=== PATIENT | female | born 1975 | race Caucasian/White ===

== ENCOUNTER 2017-06-21 19:41 | Emergency (ER) | payer OTHER ==
[2017-06-21] MEDS: ALBUTEROL SO4 2.5/IPRATROPIUM 0.5 INH SOL 3 ML VIAL.NEB. NEB SCH ×5 (19:40→21:26)
[2017-06-21] MEDS ORDERED: ALBUTEROL SO4 2.5/IPRATROPIUM 0.5 INH SOL 3 ML VIAL.NEB. NEB PRN (19:46)
[2017-06-21] MEDS ORDERED: predniSONE 20 MG TABLET (UD) PO ONE (19:47)
--- NOTE | 2017-06-21 19:49 | PDOC ---
History of Present Illness - General Chief Complaint: Asthma Stated Complaint: ASTHMA Time Seen by Provider: 06/21/17 19:46 History Source: Patient Exam Limitations: No Limitations - History of Present Illness Initial Comments: 06/21/17 19:45 This is a 42-year-old female who comes in complaining of acute exacerbation of her asthma. Patient said she has asthma but it's intermittent and that she does not have any of her asthma medicine including her rescue inhaler. Patient said it's been a number years since she had a asthma attack. Patient said she was started on amoxicillin for a dental procedure and isn't sure whether or not that could've triggered the asthma attack. Patient otherwise denies any chest pain, nausea or abdominal pain. Patient has a history of anxiety and was noted to be very anxious and hyperventilating on arrival in the emergency room. PAST MEDICAL HISTORY: no significant history PAST SURGICAL HISTORY: no significant history FAMILY HISTORY: no pertinant history SOCIAL HISTORY: Pt lives with family and is employed. MEDICATIONS: reviewed ALLERGIES: As per nursing notes Review of Systems General: No fevers or chills, no weakness, no weight loss HEENT: No change in vision. No sore throat,. No ear pain CardioVascular: No chest pain or shortness of breath Respiratory:No cough, or wheezing. Gastrointestinal: no nausea, vomitting, diarrhea or constipation, No rectal bleeding Genitourinary: No dysuria, hematuria, or frequency Musculoskeletal: No joint or muscle pain or swelling Neurologic: No headache, vertigo, dizziness or loss of consciousness Psychiatric: nor depression Skin: No rashes or easy bruising Endocrine: no increased thirst or abnormal weight change Allergic: no skin or latex allergy All other systems reviewed and normal Exam: General: Well-nourished well-developed individual, moderate distress, hyperventilating HEENT: Throat: Normal, tonsils normal, no erythema or exudate Neck: Supple, no meningeal signs, no lymphadenopathy Eyes::Pupils equal reactive and round, extraocular motion intact Chest: Nontender to palpation Cardiac: S1-S2 normal, regular rate and rhythm, no murmurs rubs or gallops, tachycardia Respiratory: There is decreased breath sounds bilaterally with expiratory phase greater than inspiratory phase with expiratory wheezing in all lung bergeron. Abdomen: Soft, nondistended, normal bowel sounds, nontender to palpation diffusely Extremities: Warm, dry, no cyanosis, clubbing, or edema Skin: No rashes Neuro: Alert and oriented x3, nonfocal exam, grossly intact, normal gait Psych: Normal mood and affect 20:40 Reevaluation. Patient much better. Respiratory rate is now normal. Patient still has some mild x-ray wheezing otherwise lungs are clear. Past History - Past Medical History Allergies/Adverse Reactions: Allergies Allergy/AdvReac Type Severity Reaction Status Date / Time No Known Allergies Allergy Verified 02/13/15 20:06 Home Medications: Ambulatory Orders Sertraline HCl [Zoloft -] 100 mg PO DAILY 10/03/14 Alprazolam [Xanax] 0.5 mg PO QID PRN 02/13/15 Oxycodone HCl/Acetaminophen [Percocet 5/325 -] 1 - 2 tab PO Q4H #20 tablet 02/14 Albuterol Sulfate Inhaler - [Ventolin Hfa Inhaler -] 1 - 2 inh PO Q4H #1 inhaler 06/21/17 Clindamycin [Cleocin -] 300 mg PO TID #15 capsule 06/21/17 Metoprolol Succinate [Toprol Xl -] 50 mg PO DAILY 06/21/17 Prednisone [Deltasone -] 60 mg PO DAILY #12 tablet 06/21/17 HTN: Yes Kidney Stones: Yes Psychiatric Problems: Yes - Immunization History Immunization Up to Date: Yes - Suicide/Smoking/Psychosocial Hx Smoking Status: Yes Smoking History: Current every day smoker Years of Tobacco Use: 15 Number of Cigarettes Smoked Daily: 5 'Breaking Loose' booklet given: 09/19/13 Hx Alcohol Use: No Drug/Substance Use Hx: No Substance Use Type: None Hx Substance Use Treatment: No *DC/Admit/Observation/Transfer Diagnosis at time of Disposition: Asthma with acute exacerbation Qualifiers: Asthma severity: moderate Asthma persistence: unspecified Qualified Code(s): J45.901 - Unspecified asthma with (acute) exacerbation; J45.901 - Unspecified asthma with (acute) exacerbation; J45.901 - Unspecified asthma with (acute) exacerbation - Discharge Dispostion Disposition: HOME Condition at time of disposition: Stable Admit: No - Patient Instructions Printed Discharge Instructions: Asthma -- Adult Additional Instructions: Stop taking the ampicillin in case it contributed to your asthma attack. Instead get the prescription filled for clindamycin take it as prescribed. I sent a prescription to your pharmacy for the Ventolin metered-dose inhaler. You can take 2 puffs as often as every 4 hours if needed for wheezing. I also sent a prescription to your pharmacy for prednisone take 60 mg a day for the next 4 days. Return to the emergency department immediately with ANY new, persistent or worsening symptoms. Continue any medications as previously prescribed by your physician. You should follow up with your primary doctor as soon as possible regarding today's emergency department visit. . Please make sure your doctor reviews the results of your emergency evaluation. Thank you for coming to the Emergency Department today for your care. It was a pleasure to see you today. Please note that your evaluation is INCOMPLETE until you follow-up with your doctor.
[2017-06-21 19:56] VITALS: BMI 38.2
[2017-06-21] MEDS ORDERED: ALPRAZolam 0.25 MG TABLET PO STA (20:05)
[2017-06-21 21:25] VITALS: BP 156/98; PULSE 96
== END 2017-06-21 21:29 | disposition home or self-care (01) ==
LOC: FER 19:41
DX: J45.901 Unspecified asthma with (acute) exacerbation (principal); I10 Essential (primary) hypertension; F17.210 Nicotine dependence, cigarettes, uncomplicated; F99 Mental disorder, not otherwise specified; Z87.442 Personal history of urinary calculi
CPT/HCPCS: 99281-25

== ENCOUNTER 2021-03-09 18:40 | Emergency (ER) | payer OTHER ==
[2021-03-09 19:04] VITALS: BP 160/90; PULSE 86; TEMP 98.9; BMI 44.0
[2021-03-09 20:05] LABS: BASO % 3.9 % (0-2.0); EOS % 1.7 % (0-4.5); HEMATOCRIT 35.2 % (32.4-45.2); HEMOGLOBIN 12.5 GM/dl (10.7-15.3); LYMPH % 21.7 % (8-40); MCH 29.2 pg (25.7-33.7); MCHC 35.5 g/dl (32.0-36.0); MEAN CELL VOLUME 82.2 fl (80-96); MEAN PLT VOLUME 9.7 fl (7.5-11.1); MONO % 5.5 % (3.8-10.2); NEUT % 67.2 % (42.8-82.8); PLATELET COUNT 181 10^3/uL (134-434); RBC 4.28 M/mm3 (3.60-5.2); RDW 13.5 % (11.6-15.6); WHITE BLOOD COUNT 6.8 K/mm3 (4.0-10.8)
[2021-03-09 20:20] LABS: ALBUMIN 3.5 g/dl (3.4-5.0); BILIRUBIN,TOTAL 0.5 mg/dl (0.2-1); CALCIUM 8.2 mg/dl (8.5-10); CREATININE 0.5 mg/dl (0.55-1.3)
[2021-03-09] MEDS ORDERED: ACETAMINOPHEN 1000 MG/100 ML VIAL (NON FORMULARY) IVPB ONE (20:23)
[2021-03-09] MEDS ORDERED: ACETAMINOPHEN INJECTION 100 ML IVPB ONE (20:26)
[2021-03-09] MEDS ORDERED: CEPHALEXIN MONOHYDRATE 500 MG CAPSULE (UD) PO ONE (21:38)
[2021-03-09] MEDS ORDERED: KETOROLAC TROMETHAMINE 30 MG/1 ML VIAL ONE (21:39)
[2021-03-09] MEDS ORDERED: KETOROLAC TROMETHAMINE 30 MG/1 ML VIAL IVPUSH ONE (21:39)
[2021-03-09] MEDS ORDERED: CEPHALEXIN MONOHYDRATE 500 MG CAPSULE (UD) ONE (21:40)
== END 2021-03-09 21:57 | disposition home or self-care (01) ==
LOC: FER 18:40
PROC: 3E0333Z Introduction of Anti-inflammatory into Peripheral Vein, Percutaneous Approach (ICD-10-PCS; principal; 2021-03-09)
PROC: 3E0333Z Introduction of Anti-inflammatory into Peripheral Vein, Percutaneous Approach (ICD-10-PCS; 2021-03-09)
DX: R60.0 Localized edema (principal); L03.115 Cellulitis of right lower limb
CPT/HCPCS: 36415; 80053; 85025; 85730; 93971-TC; 99284-25; J0131

== ENCOUNTER 2021-04-08 23:49 | Inpatient (IN) | payer OTHER ==
[2021-04-09] MEDS ORDERED: oxyCODONE HCL 5 MG TABLET PO ONE (01:09)
[2021-04-09] MEDS ORDERED: oxyCODONE HCL 5 MG TABLET ONE (01:22)
[2021-04-09] MEDS ORDERED: KETOROLAC TROMETHAMINE 30 MG/1 ML VIAL IM ONE (03:09)
[2021-04-09] MEDS ORDERED: KETOROLAC TROMETHAMINE 30 MG/1 ML VIAL ONE (03:27)
[2021-04-09 06:02] LABS: BASO % 0.6 % (0-2.0); EOS % 2.2 % (0-4.5); HEMATOCRIT 34.1 % (32.4-45.2); HEMOGLOBIN 11.9 GM/dL (10.7-15.3); LYMPH % 21.8 % (8-40); MCH 28.2 pg (25.7-33.7); MCHC 34.9 g/dl (32.0-36.0); MEAN CELL VOLUME 80.8 fl (80-96); MEAN PLT VOLUME 9.6 fl (7.5-11.1); MONO % 6.9 % (3.8-10.2); NEUT % 68.5 % (42.8-82.8); PLATELET COUNT 188 10^3/uL (134-434); RBC 4.22 M/mm3 (3.60-5.2); RDW 14.5 % (11.6-15.6); WHITE BLOOD COUNT 6.4 K/mm3 (4.0-10.0)
[2021-04-09 06:19] LABS: CALCIUM 8.1 mg/dL (8.5-10.1)
[2021-04-09 06:20] LABS: BLOOD UREA NITROGEN 8.9 mg/dL (7-18)
[2021-04-09 06:23] LABS: CREATININE 0.7 mg/dL (0.55-1.3)
[2021-04-09] MEDS ORDERED: POTASSIUM CHLORIDE TABS 20 MEQ TABLET.ER (FP) PO ONE ×2 (06:33→06:56)
[2021-04-09] MEDS ORDERED: ACETAMINOPHEN 325 MG TABLET (FP) PO PRN (08:08)
[2021-04-09] MEDS ORDERED: ACETAMINOPHEN 325 MG TABLET (FP) ONE (08:19)
[2021-04-09] MEDS ORDERED: ENOXAPARIN NA (PORCINE) 40 MG/0.4 ML DISP.SYRIN SQ ONE (08:19)
[2021-04-09] MEDS ORDERED: SUMAtriptan SUCCINATE 50 MG TABLET PO PRN (08:32)
[2021-04-09] MEDS ORDERED: ALBUTEROL SO4 HFA INHALER IH PRN (08:32)
[2021-04-09] MEDS: ENOXAPARIN NA (PORCINE) 40 MG/0.4 ML DISP.SYRIN SQ SCH (09:13)
[2021-04-09] MEDS ORDERED: amLODIPine BESYLATE 5 MG TABLET (FP) ONE (09:49)
[2021-04-09] MEDS ORDERED: LISINOPRIL 20 MG TABLET ONE (09:49)
[2021-04-09] MEDS ORDERED: ARIPiprazole 5 MG TABLET ONE (09:50)
[2021-04-09] MEDS: ARIPiprazole 5 MG TABLET PO SCH (09:53)
[2021-04-09] MEDS: amLODIPine BESYLATE 5 MG TABLET (FP) PO SCH (09:53)
[2021-04-09] MEDS: LISINOPRIL 20 MG TABLET PO SCH (09:53)
[2021-04-09] MEDS ORDERED: SUMAtriptan SUCCINATE 50 MG TABLET ONE (13:04)
[2021-04-09 13:33] LABS: EPI CELLS 18 /uL (0-25.1); HYALINE CASTS 0 /uL (0-3.1); PH,URINE 6.5 (5.0-8.0); URINE APPEARANCE CLEAR; URINE BACTERIA 258 /uL (0-1359); URINE BILIRUBIN NEGATIVE (NEGATIVE); URINE COLOR YELLOW; URINE GLUCOSE (UA) NEGATIVE (NEGATIVE); URINE KETONE NEGATIVE (NEGATIVE); URINE LEUK ESTERASE NEGATIVE (NEGATIVE); URINE NITRITE NEGATIVE (NEGATIVE); URINE PROTEIN 1+ (NEGATIVE); URINE RBC 23 /uL (0-23.9); URINE WBC 12 /uL (0-25.8)
[2021-04-09 14:04] VITALS: BMI 55.2
[2021-04-09] MEDS ORDERED: PNEUMOC 13-VAL CONJ-DIP CRM/PF 0.5 ML DISP.SYRIN IM ONE (14:09)
[2021-04-09] MEDS ORDERED: PNEUMOCOCCAL 23 VACCINE 0.5 ML VIAL IM ONE (17:00)
[2021-04-09] MEDS: SERTRALINE HCL 50 MG TABLET (FP) PO SCH (22:00)
[2021-04-09] MEDS: ACETAMINOPHEN 325 MG TABLET (FP) PO PRN (22:00)
[2021-04-09] MEDS: ZOLPIDEM TARTRATE 5 MG TABLET PO PRN (22:01)
[2021-04-09] MEDS: oxyCODONE HCL 5 MG TABLET PO PRN (22:01)
[2021-04-10] MEDS: ALPRAZolam 1 MG TABLET PO PRN ×2 (01:15→09:21)
[2021-04-10] MEDS: IBUPROFEN 400 MG TABLET (FP) PO PRN ×2 (04:22→09:14)
[2021-04-10] MEDS: oxyCODONE HCL 5 MG TABLET PO PRN ×3 (06:08→18:58)
[2021-04-10] MEDS: ACETAMINOPHEN 325 MG TABLET (FP) PO PRN (06:08)
[2021-04-10 09:07] LABS: BASO % 0.6 % (0-2.0); EOS % 2.6 % (0-4.5); HEMATOCRIT 33.3 % (32.4-45.2); HEMOGLOBIN 11.8 GM/dL (10.7-15.3); LYMPH % 24.2 % (8-40); MCH 28.3 pg (25.7-33.7); MCHC 35.4 g/dl (32.0-36.0); MEAN CELL VOLUME 80.1 fl (80-96); MEAN PLT VOLUME 9.3 fl (7.5-11.1); MONO % 6.6 % (3.8-10.2); PLATELET COUNT 190 10^3/uL (134-434); RBC 4.15 M/mm3 (3.60-5.2); RDW 14.3 % (11.6-15.6); WHITE BLOOD COUNT 5.1 K/mm3 (4.0-10.0)
[2021-04-10] MEDS: ARIPiprazole 5 MG TABLET PO SCH (09:13)
[2021-04-10] MEDS: amLODIPine BESYLATE 5 MG TABLET (FP) PO SCH (09:14)
[2021-04-10] MEDS: ENOXAPARIN NA (PORCINE) 40 MG/0.4 ML DISP.SYRIN SQ SCH (09:14)
[2021-04-10] MEDS: LISINOPRIL 20 MG TABLET PO SCH (09:14)
[2021-04-10 09:27] LABS: BLOOD UREA NITROGEN 11.2 mg/dL (7-18)
[2021-04-10 09:28] LABS: ALBUMIN 2.9 g/dl (3.4-5.0); CALCIUM 8.1 mg/dL (8.5-10.1); MAGNESIUM 2.1 mg/dL (1.8-2.4)
[2021-04-10 09:31] LABS: CREATININE 0.6 mg/dL (0.55-1.3)
[2021-04-10 09:32] LABS: PHOSPHOROUS 3.7 mg/dL (2.5-4.9)
[2021-04-10 09:33] LABS: BILIRUBIN,TOTAL 0.4 mg/dL (0.2-1); TOT PROT 5.9 g/dl (6.4-8.2)
[2021-04-10] MEDS ORDERED: ACETAMINOPHEN 325 MG TABLET (FP) PO STA (10:01)
[2021-04-10] MEDS ORDERED: oxyCODONE HCL 5 MG TABLET PO PRN (10:03)
[2021-04-10] MEDS ORDERED: POTASSIUM CHLORIDE TABS 20 MEQ TABLET.ER (FP) PO ONE (10:04)
[2021-04-10] MEDS ORDERED: ACETAMINOPHEN 500 MG TABLET (FP) PO STA (10:17)
[2021-04-10] MEDS: CARISOPRODOL 350 MG PO SCH (10:28)
[2021-04-10] MEDS ORDERED: ACETAMINOPHEN 500 MG TABLET (FP) PO SCH (10:30)
[2021-04-10] MEDS: LIDOCAINE 5% TOPICAL PATCH TP SCH (10:30)
[2021-04-10] MEDS: ACETAMINOPHEN 500 MG TABLET (FP) PO SCH ×3 (10:30→22:42)
[2021-04-10] MEDS ORDERED: GABAPENTIN 100 MG CAPSULE PO SCH (14:00)
[2021-04-10] MEDS ORDERED: PT OWN MED DRAWER 7, Y5N ONE ×2 (21:13)
[2021-04-10] MEDS: LIDOCAINE PATCH REMOVAL MC SCH (21:15)
[2021-04-10] MEDS: BACLOFEN 10 MG TABLET (FP) PO SCH (21:15)
[2021-04-10] MEDS: GABAPENTIN 300 MG CAPSULE PO SCH (21:15)
[2021-04-10] MEDS: SERTRALINE HCL 50 MG TABLET (FP) PO SCH (21:15)
[2021-04-10] MEDS: ZOLPIDEM TARTRATE 5 MG TABLET PO PRN (22:42)
[2021-04-10] MEDS: CELECOXIB 200 MG CAPSULE PO SCH (22:43)
[2021-04-11] MEDS: ALPRAZolam 1 MG TABLET PO PRN ×3 (00:17→21:59)
[2021-04-11] MEDS: oxyCODONE HCL 5 MG TABLET PO PRN ×4 (01:28→21:16)
[2021-04-11] MEDS: ACETAMINOPHEN 500 MG TABLET (FP) PO SCH ×4 (03:30→22:10)
[2021-04-11] MEDS: BACLOFEN 10 MG TABLET (FP) PO SCH ×3 (05:53→21:15)
[2021-04-11] MEDS: GABAPENTIN 300 MG CAPSULE PO SCH ×3 (05:53→21:15)
[2021-04-11] MEDS ORDERED: PT OWN MED DRAWER 7, Y5N ONE ×2 (10:04→20:33)
[2021-04-11] MEDS: amLODIPine BESYLATE 5 MG TABLET (FP) PO SCH (10:27)
[2021-04-11] MEDS: LISINOPRIL 20 MG TABLET PO SCH (10:29)
[2021-04-11] MEDS: ARIPiprazole 5 MG TABLET PO SCH (10:29)
[2021-04-11] MEDS: CELECOXIB 200 MG CAPSULE PO SCH ×2 (10:30→21:15)
[2021-04-11] MEDS: ENOXAPARIN NA (PORCINE) 40 MG/0.4 ML DISP.SYRIN SQ SCH (10:32)
[2021-04-11] MEDS: LIDOCAINE 5% TOPICAL PATCH TP SCH (10:50)
[2021-04-11] MEDS ORDERED: POTASSIUM CHLORIDE TABS 20 MEQ TABLET.ER (FP) PO ONE (14:00)
[2021-04-11] MEDS: SERTRALINE HCL 50 MG TABLET (FP) PO SCH (21:15)
[2021-04-11] MEDS: LIDOCAINE PATCH REMOVAL MC SCH (21:15)
[2021-04-11] MEDS: ZOLPIDEM TARTRATE 5 MG TABLET PO PRN (21:59)
[2021-04-12] MEDS: oxyCODONE HCL 5 MG TABLET PO PRN ×2 (03:43→10:09)
[2021-04-12] MEDS: ACETAMINOPHEN 500 MG TABLET (FP) PO SCH ×2 (03:44→12:33)
[2021-04-12] MEDS: BACLOFEN 10 MG TABLET (FP) PO SCH (06:05)
[2021-04-12] MEDS: GABAPENTIN 300 MG CAPSULE PO SCH (06:05)
[2021-04-12] MEDS: ALPRAZolam 1 MG TABLET PO PRN (08:41)
[2021-04-12] MEDS: LISINOPRIL 20 MG TABLET PO SCH (10:08)
[2021-04-12] MEDS: ARIPiprazole 5 MG TABLET PO SCH (10:08)
[2021-04-12] MEDS: amLODIPine BESYLATE 5 MG TABLET (FP) PO SCH (10:09)
[2021-04-12] MEDS: LIDOCAINE 5% TOPICAL PATCH TP SCH (10:11)
[2021-04-12] MEDS: ENOXAPARIN NA (PORCINE) 40 MG/0.4 ML DISP.SYRIN SQ SCH (10:11)
[2021-04-12] MEDS ORDERED: PT OWN MED DRAWER 7, Y5N ONE (10:13)
[2021-04-12] MEDS: CELECOXIB 200 MG CAPSULE PO SCH (10:14)
[2021-04-12 11:22] VITALS: BP 149/89; PULSE 79; TEMP 98
== END 2021-04-12 14:00 | disposition home health service (06) | DRG 384 ==
LOC: JER 23:49 → UNDOADMOB 04-09 04:37 → INTOOBSV 04-09 04:37 → JERBED 04-09 04:37 → J8W 04-09 13:47 → OBSVTOIN 04-10 08:08
PROVIDERS: ADMIT Internal Medicine; ATTEND Nurse Practitioner Acute Care
DX: S80.01XA Contusion of right knee, initial encounter (principal); I10 Essential (primary) hypertension; Z68.43 Body mass index [BMI] 50.0-59.9, adult; E66.01 Morbid (severe) obesity due to excess calories; F41.9 Anxiety disorder, unspecified; F31.9 Bipolar disorder, unspecified; G43.909 Migraine, unspecified, not intractable, without status migrainosus; M54.5 Low back pain; F25.9 Schizoaffective disorder, unspecified; J45.20 Mild intermittent asthma, uncomplicated; E28.2 Polycystic ovarian syndrome; M62.830 Muscle spasm of back; W01.0XXA Fall on same level from slipping, tripping and stumbling without subsequent striking against object, initial encounter; Y93.89 Activity, other specified; Y92.89 Other specified places as the place of occurrence of the external cause; Y99.8 Other external cause status
CPT/HCPCS: 36415; 72100-TC-FY; 72131-TC; 73030-TC-LT-FY; 73562-TC-RT-FY; 73700-TC-RT; 80048; 80053; 81003; 83735; 84100; 85025; 87086; 90732; 93005; 93010; 97116-GP; 97161-GP; 99285-25; C9803; G0009; G0378; J0475; U0003; U0005

== ENCOUNTER 2021-08-13 21:51 | Inpatient (IN) | payer OTHER ==
[2021-08-13] MEDS ORDERED: ALBUTEROL SO4 2.5/IPRATROPIUM 0.5 INH SOL 3 ML VIAL.NEB. NEB ONE ×4 (23:54→23:58)
[2021-08-13] MEDS ORDERED: LACTATED RINGERS SOLUTION 1000 ML INFUS.BAG IV ONE (23:54)
[2021-08-13] MEDS ORDERED: DEXAMETHASONE SOD PHOSPHATE 4 MG/1 ML VIAL IVPUSH ONE (23:54)
[2021-08-13] MEDS ORDERED: oxyCODONE HCL 5 MG TABLET PO ONE (23:55)
[2021-08-13] MEDS ORDERED: DEXAMETHASONE SOD PHOSPHATE 10 MG/1 ML VIAL ONE (23:58)
[2021-08-14] MEDS ORDERED: oxyCODONE HCL 5 MG TABLET ONE
[2021-08-14] MEDS ORDERED: ONDANSETRON *ODT* 4 MG TABLET SL ONE (00:14)
[2021-08-14 00:15] LABS: BASO % 0.6 % (0-2.0); EOS % 1.2 % (0-4.5); HEMATOCRIT 38.5 % (32.4-45.2); HEMOGLOBIN 13.1 GM/dL (10.7-15.3); LYMPH % 33.8 % (8-40); MCH 26.5 pg (25.7-33.7); MCHC 33.9 g/dl (32.0-36.0); MEAN CELL VOLUME 78.3 fl (80-96); MONO % 10.2 % (3.8-10.2); NEUT % 54.2 % (42.8-82.8); PLATELET COUNT 153 10^3/uL (134-434); RBC 4.92 M/mm3 (3.60-5.2); RDW 15.3 % (11.6-15.6); WHITE BLOOD COUNT 4.6 K/mm3 (4.0-10.0)
[2021-08-14 00:16] LABS: VENOUS BASE EXCESS 1.6 mmol/L (-2-2); VENOUS O2 SATURATION 67.2 % (70-80); VENOUS PCO2 56.9 mmHg (38-52); VENOUS PH 7.328 (7.310-7.410)
[2021-08-14] MEDS ORDERED: ONDANSETRON *ODT* 4 MG TABLET ONE (00:17)
[2021-08-14 00:23] LABS: INR 1.06 (0.83-1.09); PROTHROMBIN TIME (PATIENT) 12.4 SEC (9.7-13.0)
[2021-08-14 00:26] LABS: ACTIVATED PTT 28.7 SECONDS (25.2-36.5)
[2021-08-14 00:34] LABS: CHLORIDE 101 mmol/L (98-107); SODIUM 137 mmol/L (136-145)
[2021-08-14 00:36] LABS: CALCIUM 8.8 mg/dL (8.5-10.1)
[2021-08-14 00:37] LABS: ALBUMIN 3.6 g/dl (3.4-5.0); ANION GAP 8 MMOL/L (8-16); CO2 27 mmol/L (21-32); GLUCOSE,RANDOM 96 mg/dL (74-106)
[2021-08-14 00:40] LABS: CREATININE 0.9 mg/dL (0.55-1.3); SGOT/AST 57 U/L (15-37); SGPT/ALT 59 U/L (13-61)
[2021-08-14 00:41] LABS: TOT PROT 7.1 g/dl (6.4-8.2)
[2021-08-14 00:42] LABS: BILIRUBIN,TOTAL 0.6 mg/dL (0.2-1); LDH 309 U/L (84-246)
[2021-08-14 00:43] LABS: ALK PHOS 76 U/L (45-117)
[2021-08-14] MEDS ORDERED: oxyCODONE HCL 5 MG TABLET PO ONE (02:35)
[2021-08-14] MEDS ORDERED: PATIENT'S OWN MEDICATION (NON-FORMULARY) (Carisoprodol [Soma] 350 MG) PO PRN (03:26)
[2021-08-14] MEDS ORDERED: ACETAMINOPHEN 325 MG TABLET (FP) ONE (05:27)
[2021-08-14] MEDS: ACETAMINOPHEN 325 MG TABLET (FP) PO PRN (05:32)
[2021-08-14] MEDS ORDERED: CARISOPRODOL 350 MG PO SCH (06:00)
[2021-08-14 09:58] LABS: BASO % 0.6 % (0-2.0); HEMOGLOBIN 12.7 GM/dL (10.7-15.3); LYMPH % 14.7 % (8-40); MCH 27.1 pg (25.7-33.7); MCHC 34.3 g/dl (32.0-36.0); MONO % 4.2 % (3.8-10.2); NEUT % 80.5 % (42.8-82.8); PLATELET COUNT 150 10^3/uL (134-434); RBC 4.68 M/mm3 (3.60-5.2); RDW 15.3 % (11.6-15.6); WHITE BLOOD COUNT 3.1 K/mm3 (4.0-10.0)
[2021-08-14 10:25] LABS: ALBUMIN 3.4 g/dl (3.4-5.0); BLOOD UREA NITROGEN 13.1 mg/dL (7-18); CALCIUM 8.9 mg/dL (8.5-10.1); MAGNESIUM 2.4 mg/dL (1.8-2.4)
[2021-08-14 10:28] LABS: CREATININE 0.9 mg/dL (0.55-1.3); PHOSPHOROUS 3.7 mg/dL (2.5-4.9)
[2021-08-14 10:30] LABS: BILIRUBIN,TOTAL 0.5 mg/dL (0.2-1)
[2021-08-14] MEDS ORDERED: ARIPiprazole 5 MG TABLET ONE (10:59)
[2021-08-14] MEDS ORDERED: ENOXAPARIN NA (PORCINE) 40 MG/0.4 ML DISP.SYRIN SQ ONE ×2 (10:59→22:27)
[2021-08-14] MEDS ORDERED: DEXAMETHASONE SOD PHOSPHATE 10 MG/1 ML VIAL ONE (10:59)
[2021-08-14] MEDS: DEXAMETHASONE SOD PHOSPHATE 4 MG/1 ML VIAL IVPUSH SCH (11:06)
[2021-08-14] MEDS: ARIPiprazole 5 MG TABLET PO SCH (11:06)
[2021-08-14] MEDS: ENOXAPARIN NA (PORCINE) 40 MG/0.4 ML DISP.SYRIN SQ SCH ×2 (11:07→22:58)
[2021-08-14] MEDS ORDERED: ALBUTEROL SO4 HFA INHALER IH PRN (13:14)
[2021-08-14] MEDS ORDERED: guaiFENesin 200 MG/10 ML 10 ML UNIT-DOSE CUPS PO PRN (13:23)
[2021-08-14] MEDS ORDERED: REMDESIVIR 200 MG in SODIUM CHLORIDE 250 ML IVPB ONE (15:00)
[2021-08-14 15:47] LABS: ARTERIAL BLD GAS O2 SATURATION 90.6 % (95-98); ARTERIAL BLOOD GAS BASE EXCESS -1.4 mmol/L (-2-2); ARTERIAL BLOOD GAS PO2 62.6 mmHg (80-100); ARTERIAL BLOOD GAS pH 7.342 (7.350-7.450)
[2021-08-14 15:48] LABS: ALLENS TEST POSITIVE
[2021-08-14] MEDS ORDERED: BACLOFEN 10 MG TABLET (FP) PO SCH (18:42)
[2021-08-14] MEDS ORDERED: amLODIPine BESYLATE 5 MG TABLET (FP) ONE (18:54)
[2021-08-14] MEDS: amLODIPine BESYLATE 10 MG TABLET (FP) PO SCH (19:03)
[2021-08-14] MEDS: BUDESONIDE/FORMETEROL FUMARATE 160/4.5 mcg INHALER IH SCH ×2 (19:32→22:59)
[2021-08-14] MEDS ORDERED: BUDESONIDE/FORMETEROL FUMARATE 80/4.5 mcg INHALER IH SCH (22:00)
[2021-08-14] MEDS ORDERED: ZOLPIDEM TARTRATE 5 MG TABLET PO PRN (22:00)
[2021-08-14] MEDS ORDERED: SERTRALINE HCL 50 MG TABLET (FP) ONE (22:27)
[2021-08-14] MEDS: LIDOCAINE PATCH REMOVAL MC SCH (22:58)
[2021-08-14] MEDS: CELECOXIB 200 MG CAPSULE PO SCH (22:58)
[2021-08-14] MEDS: SERTRALINE HCL 50 MG TABLET (FP) PO SCH (22:59)
[2021-08-15 03:08] VITALS: BMI 54.3
[2021-08-15] MEDS: BACLOFEN 10 MG TABLET (FP) PO SCH ×3 (05:04→21:59)
[2021-08-15] MEDS: DEXAMETHASONE SOD PHOSPHATE 4 MG/1 ML VIAL IVPUSH SCH (10:03)
[2021-08-15] MEDS: ARIPiprazole 5 MG TABLET PO SCH (10:03)
[2021-08-15] MEDS: CELECOXIB 200 MG CAPSULE PO SCH ×2 (10:03→22:40)
[2021-08-15] MEDS: amLODIPine BESYLATE 10 MG TABLET (FP) PO SCH (10:03)
[2021-08-15] MEDS: ENOXAPARIN NA (PORCINE) 40 MG/0.4 ML DISP.SYRIN SQ SCH ×2 (10:03→21:59)
[2021-08-15] MEDS: ALPRAZolam 1 MG TABLET PO PRN (10:03)
[2021-08-15] MEDS: LISINOPRIL 20 MG TABLET PO SCH (10:03)
[2021-08-15] MEDS: LIDOCAINE 5% TOPICAL PATCH TP SCH (10:04)
[2021-08-15] MEDS: BUDESONIDE/FORMETEROL FUMARATE 160/4.5 mcg INHALER IH SCH ×2 (10:15→22:00)
[2021-08-15 10:34] LABS: BASO % 0.1 % (0-2.0); HEMATOCRIT 33.1 % (32.4-45.2); HEMOGLOBIN 11.5 GM/dL (10.7-15.3); LYMPH % 9.8 % (8-40); MCH 27.4 pg (25.7-33.7); MCHC 34.6 g/dl (32.0-36.0); MEAN PLT VOLUME 9.5 fl (7.5-11.1); MONO % 5.1 % (3.8-10.2); PLATELET COUNT 150 10^3/uL (134-434); RBC 4.19 M/mm3 (3.60-5.2); WHITE BLOOD COUNT 5.7 K/mm3 (4.0-10.0)
[2021-08-15 11:03] LABS: ALBUMIN 3.4 g/dl (3.4-5.0); CALCIUM 8.5 mg/dL (8.5-10.1)
[2021-08-15 11:04] LABS: BLOOD UREA NITROGEN 24.9 mg/dL (7-18)
[2021-08-15 11:05] LABS: BILIRUBIN,TOTAL 0.3 mg/dL (0.2-1); TOT PROT 6.7 g/dl (6.4-8.2)
[2021-08-15 11:07] LABS: CREATININE 0.8 mg/dL (0.55-1.3)
[2021-08-15] MEDS: REMDESIVIR 100 MG in SODIUM CHLORIDE 250 ML IVPB SCH (14:27)
[2021-08-15] MEDS: LIDOCAINE PATCH REMOVAL MC SCH (21:58)
[2021-08-15] MEDS: ACETAMINOPHEN 325 MG TABLET (FP) PO PRN (21:59)
[2021-08-15] MEDS: SERTRALINE HCL 50 MG TABLET (FP) PO SCH (21:59)
[2021-08-15] MEDS ORDERED: PT OWN MED DRAWER 7, Y5N ONE (22:02)
[2021-08-16] MEDS ORDERED: PT OWN MED DRAWER 7, Y5N ONE ×2 (05:05→09:18)
[2021-08-16] MEDS: BACLOFEN 10 MG TABLET (FP) PO SCH ×3 (05:19→22:03)
[2021-08-16] MEDS: REMDESIVIR 100 MG in SODIUM CHLORIDE 250 ML IVPB SCH (09:40)
[2021-08-16] MEDS: ENOXAPARIN NA (PORCINE) 40 MG/0.4 ML DISP.SYRIN SQ SCH ×2 (09:40→22:03)
[2021-08-16] MEDS: LIDOCAINE 5% TOPICAL PATCH TP SCH (09:41)
[2021-08-16] MEDS: CELECOXIB 200 MG CAPSULE PO SCH ×2 (09:42→22:04)
[2021-08-16] MEDS: LISINOPRIL 20 MG TABLET PO SCH (09:42)
[2021-08-16] MEDS: ARIPiprazole 5 MG TABLET PO SCH (09:42)
[2021-08-16] MEDS: amLODIPine BESYLATE 10 MG TABLET (FP) PO SCH (09:43)
[2021-08-16] MEDS: BUDESONIDE/FORMETEROL FUMARATE 160/4.5 mcg INHALER IH SCH ×2 (09:54→22:04)
[2021-08-16] MEDS: DEXAMETHASONE SOD PHOSPHATE 4 MG/1 ML VIAL IVPUSH SCH (09:54)
[2021-08-16] MEDS: ACETAMINOPHEN 325 MG TABLET (FP) PO PRN ×2 (10:11→22:03)
[2021-08-16] MEDS: ALPRAZolam 1 MG TABLET PO PRN ×2 (10:12→22:03)
[2021-08-16] MEDS ORDERED: ACETAMINOPHEN 325 MG TABLET (FP) PO PRN (13:00)
[2021-08-16] MEDS: oxyCODONE HCL 5 MG TABLET PO PRN ×2 (13:04→22:19)
[2021-08-16] MEDS: LIDOCAINE PATCH REMOVAL MC SCH (22:02)
[2021-08-16] MEDS: SERTRALINE HCL 50 MG TABLET (FP) PO SCH (22:03)
[2021-08-16 23:15] VITALS: BP 140/66; PULSE 70; TEMP 97.8
== END 2021-08-16 23:36 | disposition home or self-care (01) | DRG 137 ==
LOC: JER 21:51 → JERBED 08-14 03:48 → J6S 08-15 02:55
PROVIDERS: ADMIT Internal Medicine; ATTEND Internal Medicine
PROC: XW033E5 Introduction of Remdesivir Anti-infective into Peripheral Vein, Percutaneous Approach, New Technology Group 5 (ICD-10-PCS; principal; 2021-08-14)
DX: U07.1 COVID-19 (principal); J12.82 Pneumonia due to coronavirus disease 2019; Z68.43 Body mass index [BMI] 50.0-59.9, adult; E66.01 Morbid (severe) obesity due to excess calories; F41.9 Anxiety disorder, unspecified; F17.210 Nicotine dependence, cigarettes, uncomplicated; F31.9 Bipolar disorder, unspecified; G43.909 Migraine, unspecified, not intractable, without status migrainosus; M54.9 Dorsalgia, unspecified; R11.0 Nausea; R53.83 Other fatigue; R60.9 Edema, unspecified; G89.29 Other chronic pain; I10 Essential (primary) hypertension; I51.7 Cardiomegaly; J45.909 Unspecified asthma, uncomplicated; E28.2 Polycystic ovarian syndrome
CPT/HCPCS: 36415; 36600; 71045-TC-FY; 80053; 82550; 82553; 82728; 82803; 83605; 83615; 83735; 84100; 84484; 85025; 85379; 85610; 85730; 86140; 87804; 87807; 93005; 93010; 93970-TC; 94010; 94761; 99285-25; C9399; C9803; J0475; Q0162; U0003; U0005

== ENCOUNTER 2021-10-30 04:19 | Day surgery (SDC) | payer OTHER ==
[2021-10-29 13:11] VITALS: BMI 45.7
[2021-10-30] MEDS ORDERED: LIDOCAINE HCL/PF 1% SDV 5ML VIAL ONE (07:25)
[2021-10-30] MEDS ORDERED: BUPIVACAINE HCL/PF 0.75% 10 ML VIAL ONE (07:25)
[2021-10-30 14:06] VITALS: BP 191/123; PULSE 100; TEMP 97.3
== END 2021-10-30 13:40 | disposition left against medical advice (07) ==
LOC: JASU-SURG 04:19
PROVIDERS: ATTEND Pain Medicine Pain Medicine
DX: Z53.8 Procedure and treatment not carried out for other reasons (principal)

== ENCOUNTER 2023-08-04 18:25 | Emergency (ER) | payer OTHER ==
[2023-08-04 18:37] VITALS: BP 180/107; PULSE 99; RESP 18; TEMP 98.3; BMI 27.4
== END 2023-08-04 20:09 | disposition home or self-care (01) ==
LOC: JERFT 18:25
DX: L02.411 Cutaneous abscess of right axilla (principal)
CPT/HCPCS: 87070; 87186; 87205; 99283-25

== ENCOUNTER 2024-03-05 00:21 | Emergency (ER) | payer OTHER ==
[2024-03-05 00:27] VITALS: TEMP 98.2; BMI 49.1
[2024-03-05] MEDS ORDERED: KETOROLAC TROMETHAMINE 30 MG/1 ML VIAL ONE (01:20)
[2024-03-05] MEDS: KETOROLAC TROMETHAMINE 30 MG/1 ML VIAL IM ONE (01:23)
[2024-03-05 06:14] VITALS: BP 160/99; PULSE 90; RESP 20
== END 2024-03-05 06:20 | disposition home or self-care (01) ==
LOC: JER 00:21
PROC: 3E0133Z Introduction of Anti-inflammatory into Subcutaneous Tissue, Percutaneous Approach (ICD-10-PCS; principal; 2024-03-05)
DX: M25.511 Pain in right shoulder (principal)
CPT/HCPCS: 73030-TC-RT-FY; 93005; 93010; 96372; 99284-25